=== PATIENT | male | born 1990 | race Caucasian/White ===

== ENCOUNTER → 2023-08-19 08:26 | Outpatient (CLI) | payer BC, SELFPAY ==
[2023-08-19 19:36] LABS: Basophils % 0.4 % (0.1-2.0); Eosinophils # 0.2 K/mm3 (0.0-0.4); Eosinophils % 2.5 % (0.1-12.0); Hematocrit 45.2 % (42.0-52.0); Hemoglobin 15.7 g/dL (14.1-18.0); Lymphocytes # 2.3 K/mm3 (0.7-4.5); Lymphocytes % 33.7 % (10-50); Mean Corpuscular HGB Conc 34.7 g/dL (31.8-35.4); Mean Corpuscular Hemoglobin 29.7 pg (27.0-31.2); Mean Corpuscular Volume 85.5 fl (80-94); Mean Platelet Volume 8.6 fl (7.4-10.4); Monocytes # 0.4 K/mm3 (0.1-1.0); Monocytes % 5.6 % (1.7-9.3); Neutrophils # 3.9 K/mm3 (1.8-7.8); Neutrophils % 57.7 % (37.0-80.0); Platelet Count 163 K/mm3 (142-424); Red Blood Count 5.29 M/mm3 (4.60-6.20); Red Cell Distribution Width 13.6 % (11.5-17.5); White Blood Count 6.7 K/mm3 (4.8-10.8)
[2023-08-19 19:58] LABS: Alanine Aminotransferase 36 U/L (12-78); Albumin Level 4.6 g/dl (3.5-5.0); Albumin/Globulin Ratio 1.7 (1.1-1.8); Alkaline Phosphatase 74 U/L (38-126); Anion Gap 16.9 mEq/L (5-15); Aspartate Amino Transferase 32 U/L (17-59); Bilirubin,Total 0.5 mg/dl (0.2-1.3); Blood Urea Nitrogen 18 mg/dl (9-20); Calcium 9.7 mg/dl (8.4-10.2); Carbon Dioxide 26 mmol/L (22.0-30.0); Chloride 100 mmol/L (98-107); Chol/HDL Ratio 6.1 (1-3.5); Cholesterol 227 mg/dl (140-200); Estimated Glomerular Filt Rate 86 ml/min (>60); GFR (African American) 104 ML/MIN (>60); Globulin 2.7 g/dL (1.3-3.2); Glucose 91 mg/dl (74-100); HDL Cholesterol 37 mg/dl (40-60); Potassium 3.9 mmoL/L (3.5-5.1); Sodium 139 mmol/L (136-145); Total Protein,Serum 7.3 g/dl (6.3-8.2); Triglycerides 272 mg/dl (30-150); VLDL Cholesterol 54 mg/dL (0-40)
[2023-08-19 20:09] LABS: Direct LDL Cholesterol 128.44 mg/dL (100-129)
[2023-08-19 20:15] LABS: 25-OH Vitamin D, Total 28.5 ng/mL (30-100)
== END ==
PROVIDERS: PCP Physician Assistant; Visit Provider Physician Assistant
DX: Z00.00 Encounter for general adult medical examination without abnormal findings (principal); E55.9 Vitamin D deficiency, unspecified; Z68.41 Body mass index [BMI] 40.0-44.9, adult
CPT/HCPCS: 80053; 80061; 82306; 84443; 85025

== ENCOUNTER 2024-01-12 15:51 | Outpatient (CLI) | payer BC, SELFPAY ==
--- NOTE | 2024-01-12 15:56 | XR_ITS ---
FINAL REPORT CLINICAL HISTORY: cough COMPARISON: 08/25/2019 FINDINGS: Two views of the chest were obtained. The heart size and pulmonary vascularity are within normal limits. The mediastinum is normal. No acute pulmonary abnormality is identified. There is no pneumothorax. The bony thorax is intact. IMPRESSION: No active cardiopulmonary disease. Reviewed, Interpreted and Dictated by Dylan Shepherd III, MD Transcribed by Delfnia Hugo Authenticated and [facility]
[2024-01-12 16:30] LABS: Basophils # 0.1 K/mm3 (0-0.2); Basophils % 0.9 % (0.1-2.0); Eosinophils # 0.1 K/mm3 (0.0-0.4); Eosinophils % 1.7 % (0.1-12.0); Hemoglobin 15.3 g/dL (14.1-18.0); Lymphocytes # 2.7 K/mm3 (0.7-4.5); Mean Corpuscular HGB Conc 34.1 g/dL (31.8-35.4); Mean Corpuscular Hemoglobin 28.9 pg (27.0-31.2); Mean Corpuscular Volume 84.8 fl (80-94); Mean Platelet Volume 7.9 fl (7.4-10.4); Monocytes # 0.4 K/mm3 (0.1-1.0); Monocytes % 4.2 % (1.7-9.3); Neutrophils # 5.2 K/mm3 (1.8-7.8); Neutrophils % 61.2 % (37.0-80.0); Platelet Count 194 K/mm3 (142-424); Red Blood Count 5.31 M/mm3 (4.60-6.20); White Blood Count 8.4 K/mm3 (4.8-10.8)
[2024-01-12 16:47] LABS: Hemoglobin A1C 6.2 % (4.0-6.0)
[2024-01-12 17:30] LABS: Alanine Aminotransferase 29 U/L (12-78); Albumin Level 4.5 g/dl (3.5-5.0); Albumin/Globulin Ratio 1.8 (1.1-1.8); Alkaline Phosphatase 85 U/L (38-126); Aspartate Amino Transferase 28 U/L (17-59); Bilirubin,Total 0.5 mg/dl (0.2-1.3); Blood Urea Nitrogen 16 mg/dl (9-20); Carbon Dioxide 25 mmol/L (22.0-30.0); Chloride 105 mmol/L (98-107); Cholesterol 258 mg/dl (140-200); Estimated Glomerular Filt Rate 97 ml/min (>60); GFR (African American) 118 ML/MIN (>60); Globulin 2.5 g/dL (1.3-3.2); Glucose 99 mg/dl (74-100); HDL Cholesterol 37 mg/dl (40-60); Sodium 139 mmol/L (136-145); Triglycerides 363 mg/dl (30-150); VLDL Cholesterol 73 mg/dL (0-40)
[2024-01-12 17:41] LABS: Direct LDL Cholesterol 129.57 mg/dL (100-129)
[2024-01-12 17:47] LABS: 25-OH Vitamin D, Total 30.5 ng/mL (30-100)
[2024-01-12 18:02] LABS: Thyroid Stimulating Hormone 2.57 uIU/mL (0.465-4.68)
== END 2024-01-12 23:59 | disposition home or self-care (01) ==
LOC: LAB 15:52
PROVIDERS: PCP Physician Assistant; Visit Provider Family Medicine
DX: R07.89 Other chest pain (principal); R07.1 Chest pain on breathing; R09.89 Other specified symptoms and signs involving the circulatory and respiratory systems; R05.9 Cough, unspecified; J34.89 Other specified disorders of nose and nasal sinuses; R73.03 Prediabetes; E78.00 Pure hypercholesterolemia, unspecified; J06.9 Acute upper respiratory infection, unspecified; E66.9 Obesity, unspecified; Z68.41 Body mass index [BMI] 40.0-44.9, adult
CPT/HCPCS: 36415; 71046; 80053; 80061; 82306; 83036; 84443; 85025

== ENCOUNTER 2024-01-19 14:45 | Outpatient (CLI) | payer BC, SELFPAY ==
--- NOTE | 2024-01-19 14:46 | CT_ITS ---
FINAL REPORT TECHNIQUE: Thin section axial CT images were obtained from the lung apices to the upper abdomen. IV contrast was administered. MIP 3-D reformats were obtained. This study was performed with techniques to keep radiation doses as low as reasonably achievable (ALARA). Individualized dose reduction techniques using automated exposure control or adjustment of mA and/or kV according to the patient's size were employed. CLINICAL HISTORY: dyspnea, chest pain, cough looking for subclavian blockage on left COMPARISON: None FINDINGS: There is a soft tissue in the anterior mediastinum likely residual thymus. The heart size is normal. There is no adenopathy. The pulmonary vasculature is adequately opacified. There is no filling defect to suggest PE. There is no aortic dissection. There is no pericardial effusion. There is no suspicious infiltrate. No pleural effusion. There is a 5 mm nodule in the left lower lobe best seen on image 187 of series 2. IMPRESSION: No pulmonary embolism or aortic dissection. 5 mm nodule in the left lower lobe, Fleischner criteria does not apply to this patient secondary to patient's age. Consider 12-month follow-up. Reviewed, Interpreted and Dictated by Alfie Reveles MD Transcribed by LOIDA Givens Authenticated and [facility]
[2024-01-19] MEDS: SODIUM CHLORIDE 0.9% 10ML SYR (RAD ONLY) 10 ML IV (15:07)
[2024-01-19] MEDS: 0.9 % SODIUM CHLORIDE 50 ML VIAL IV (15:07)
[2024-01-19] MEDS: IOPAMIDOL-370 (76%);100ML BOTTLE 70 ML IV (15:07)
== END 2024-01-19 23:59 | disposition home or self-care (01) ==
LOC: RAD 14:46
PROVIDERS: PCP Physician Assistant; Visit Provider Family Medicine
DX: R05.9 Cough, unspecified (principal); R06.00 Dyspnea, unspecified; R09.89 Other specified symptoms and signs involving the circulatory and respiratory systems; R07.1 Chest pain on breathing
CPT/HCPCS: 71275; Q9967

== ENCOUNTER 2024-12-25 00:36 | Emergency (ER) | payer BC, SELFPAY ==
[2024-12-25 00:52] VITALS: BP 148/100; PULSE 90; RESP 16; O2SAT 98; BMI 40.4
[2024-12-25 00:55] VITALS: TEMP 36.5
--- NOTE | 2024-12-25 00:56 | CT_ITS ---
PROCEDURE INFORMATION: Exam: CT Abdomen And Pelvis With Contrast Exam date and time: 12/25/2024 2:04 AM Age: 34 years old Clinical indication: Abdominal pain; Flank; Right; Additional info: Ruq and R flank pain radiating to groin TECHNIQUE: Imaging protocol: Computed tomography of the abdomen and pelvis with contrast. Radiation optimization: All CT scans at this facility use at least one of these dose optimization techniques: automated exposure control; mA and/or kV adjustment per patient size (includes targeted exams where dose is matched to clinical indication); or iterative reconstruction. Contrast material: ISOVUE; Contrast volume: 75 ml; Contrast route: IV; COMPARISON: CT ANGIO CHEST PE PROTOCOL 01/19/2024 2:52 PM FINDINGS: Lungs: There is a pulmonary parenchymal calcification consistent with remote granulomatous organism exposure. The visualized lung bases are otherwise clear. Pleural spaces: There are no pleural effusions. Heart: The visualized portions of the heart are unremarkable. There is no evidence of pericardial fluid collections. Liver: There is a punctate calcification in the liver consistent with prior granulomatous disease. There is mild enlargement of the liver. The liver measures 21.4 cm in cc dimension. Gallbladder and biliary ducts: There is a small nodular focus involving the periphery of the gallbladder fundus which may reflect a small stone or potentially a polyp. This is best seen on series 3, image 53 and series 1002 image 30. The gallbladder is otherwise normal. Pancreas: The pancreas is normal. Spleen: There is mild nonspecific splenomegaly. The spleen measures 15.6 cm in CC dimension. The spleen demonstrates punctate calcifications, consistent with remote granulomatous organism exposure. An accessory splenule is present. Adrenal glands: The adrenal glands are normal. Kidneys and ureters: There is a focal left renal hypodensity measuring approximate 11 mm that cannot be further characterized on the current examination. Statistically, this is likely a cyst. The kidneys are otherwise normal. Stomach and bowel: The duodenum is unremarkable. Lack of gastrointestinal contrast limits evaluation of bowel. Unopacified loops of small bowel within range of normal. The colon is normal. The stomach appears within range of normal. Appendix: A normal appendix is identified. Intraperitoneal space: There is no evidence of free intraperitoneal or pelvic fluid. No free air. Vasculature: There is no evidence of an aortic aneurysm. Lymph nodes: There is no evidence of pathologic adenopathy. There are a few scattered shotty periportal and retroperitoneal lymph nodes, not of pathologic significance by CT size criteria. Urinary bladder: The bladder is decompressed. Reproductive: The prostate and seminal vesicles are normal. Bones/joints: There is no evidence of acute fracture. Soft tissues: Unremarkable. IMPRESSION: 1. Mild hepatosplenomegaly. 2. Small nodular focus involving the periphery of the gallbladder fundus which may reflect a small stone or polyp. This could be confirmed with right upper quadrant ultrasound when the patient's condition permits.
[2024-12-25] MEDS: LACTATED RINGERS 1000ML 1,000 ML 999 ML IV (01:01)
[2024-12-25] MEDS: ONDANSETRON 4MG/2ML VIAL 4 MG IV (01:02)
[2024-12-25] MEDS: HYDROMORPHONE 2MG/ML SYRINGE 0.5 MG IV (01:02)
[2024-12-25] MEDS: KETOROLAC 30MG/ML VIAL 30 MG IV (01:02)
[2024-12-25 01:11] LABS: Albumin Level 4.7 g/dl (3.5-5.0); Chloride 103 mmol/L (98-107); Hemoglobin 15.1 g/dL (14.1-18.0); Mean Corpuscular HGB Conc 33.6 g/dL (31.8-35.4); Mean Corpuscular Hemoglobin 27.6 pg (27.0-31.2); Monocytes # 0.7 K/mm3 (0.1-1.0); Potassium 3.6 mmoL/L (3.5-5.1); Red Blood Count 5.47 M/mm3 (4.60-6.20); Sodium 139 mmol/L (136-145)
[2024-12-25 01:14] LABS: Alanine Aminotransferase 35 U/L (12-78); Alkaline Phosphatase 78 U/L (38-126); Anion Gap 3.6 mEq/L (5-15); Aspartate Amino Transferase 39 U/L (17-59); Bilirubin,Total 0.5 mg/dl (0.2-1.3); Blood Urea Nitrogen 17 mg/dl (9-20); Carbon Dioxide 36 mmol/L (22.0-30.0); Creatinine Clearance Estimated 162 mL/min (50-200); Estimated Glomerular Filt Rate 63 ml/min (>60); GFR (African American) 76 ML/MIN (>60); Globulin 2.3 g/dL (1.3-3.2)
[2024-12-25 01:15] LABS: Glucose 120 mg/dl (74-100)
[2024-12-25 01:22] LABS: Basophils % 0.2 % (0.1-2.0); Eosinophils # 0.6 K/mm3 (0.0-0.4); Lymphocytes # 3.3 K/mm3 (0.7-4.5); Lymphocytes % 30.7 % (10-50); Mean Corpuscular Volume 82.3 fl (80-94); Mean Platelet Volume 9.7 fl (7.4-10.4); Monocytes % 6.6 % (1.7-9.3); Neutrophils % 56.1 % (37.0-80.0); Platelet Count 198 K/mm3 (142-424); White Blood Count 10.7 K/mm3 (4.8-10.8)
[2024-12-25 01:31] LABS: Microscopic, Urine URINE MICROSCOPIC (MICROSCOPIC)
[2024-12-25 01:33] LABS: Appearance,Urine CLEAR (Clear); Bilirubin,Urine Negative (Negative); Blood, Urine Negative (Negative); Color,Urine YELLOW (Yellow); Glucose,Urine (UA) Negative (Negative); Ketones,Urine Negative (Negative); Leukocyte Esterase,Urine Negative (Negative); Nitrate,Urine Negative (Negative); Protein,Urine TRACE (Negative); Specific Gravity, Urine >= 1.030 (1.005-1.030)
[2024-12-25] MEDS: HYDROMORPHONE 2MG/ML SYRINGE 1 MG IV (01:37)
--- NOTE | 2024-12-25 01:48 | HMH.EDGENADL ---
Discharge Plan Disposition Patient Disposition: Home, Self-Care Condition: Good Prescriptions Prescriptions: New ondansetron 4 mg tablet,disintegrating 4 mg PO Q6H PRN (Reason: nausea and vomiting) Qty: 7 0RF No Action azelastine 137 mcg (0.1 %) aerosol,spray 1 spray intranasal BID Qty: 30 2RF Rx Instructions: administer into each nostril jydfrbevlzhaxco-azrxufdnv-VU [Bromfed DM] 2-30-10 mg/5 mL syrup 10 ml PO Q6H Qty: 118 0RF azithromycin [Zithromax Z-Raulito] 250 mg tablet See Rx Instructions PO .COMPLEX Qty: 6 0RF Rx Instructions: For 250 mg dose pack: take 500 mg today (day 1), then 250 mg for 4 days (days 2-5) PO atorvastatin [Lipitor] 10 mg tablet 10 mg PO HS Qty: 30 2RF Referrals Follow up/Referrals: Dylan Giordano MD [Staff Physician] - See instructions (RUQ pain, has distended GB but no cholecystitis) Dara Hernandez PA [Primary Care Provider] - See instructions (please see for recheck kidney function) Activity Restrictions/Add. Instructions Additional Instructions/Restrictions: You were evaluated in the ER and are appropriate for discharge at this time. Drink plenty of fluids. Please make an appointment with your primary care doctor for reevaluation in 2 to 3 days to recheck your kidney function. Take the prescribed ondansetron (Zofran) if needed for nausea or vomiting. Call the general surgery office and make an appointment with Dr. Giordano for reevaluation of your gallbladder. Return to the ER with new, worsening, or otherwise concerning symptoms. Clinical Impressions Clinical Impression: Abdominal pain, RUQ (right upper quadrant) Print Language Print Language: Upper Sorbian Discharge ED Provider: Don Milner Adult HPI General Chief complaint: PAIN Stated complaint: pain R side, nausea Time Seen by Provider: 12/25/24 00:58 Mode of Arrival: Ambulatory Source of Information: Patient and Spouse Description of Symptoms (Recalled from ER Triage Doc. by RN): pt reports right sided pain that radiates into his groin and into his back. pt denies any dysuria or hematuria. History of Present Illness HPI narrative: 34-year-old male with history of high cholesterol, prediabetes presents to the ER with complaints of right upper quadrant and right flank pain radiating into his groin and his right shoulder. Patient reports he had mild pain earlier this evening but it got severe a few hours ago. He is having nausea and started having emesis in the ER. He is not having any painful urination or blood in his urine. He denies any changes in his bowel habits. Patient reports no history of abdominal surgeries. He does not currently take any prescriptions. He has no history of kidney stones. Patient reports no fevers, chills, chest pain, difficulty breathing, or other associated symptoms. Related Data Previous Rx's ?Medication ?Instructions ?Recorded azelastine 137 mcg (0.1 %) nasal 1 spray intranasal BID #30 mL 01/12/24 spray jeodzlhvsdgsasi-ihqhohtgqxfeggu-MK 10 ml PO Q6H #118 mL 01/12/24 2 mg-30 mg-10 mg/5 mL oral syrup (Bromfed DM) atorvastatin 10 mg tablet (Lipitor) 10 mg PO HS #30 tabs 01/13/24 azithromycin 250 mg tablet See Rx Instructions PO .COMPLEX #6 01/13/24 (Zithromax Z-Raulito) tabs ondansetron 4 mg disintegrating 4 mg PO Q6H PRN nausea and 12/25/24 tablet vomiting #7 tabs Allergies Allergy/AdvReac Type Severity Reaction Status Date / Time codeine Allergy Mild Verified 01/12/24 15:13 Penicillin Allergy Unknown Uncoded 08/19/23 15:53 [facility] Disclaimer: The information contained in this section may have been updated after the patient was seen, as this information can be updated by other users. Medical History (Updated 12/25/24 @ 03:49 by Don Milner MD) Gastritis Surgical History H/O nasal septoplasty Fracture of finger of left hand [place] teeth removed Social History Smoking Status: Current every day smoker alcohol intake: never substance use type: denies use current occupational status: employed Travel in the last 8 weeks: None household members: spouse and children housing: house Have you lived/traveled outside US in past 30 days?: No Contact w/someone who lives/traveled outside US past 30 days?: No Exposure to someone with infectious disease in past 14 days?: No Do you have a fever (greater than 100.4 F or 38 C)?: No Have you tested positive for COVID-19: No Exposed to someone with COVID-19 in past 14 days?: No Do you have a sore throat?: No Do you have a cough?: No Do you have any weakness?: No Do you have any diarrhea?: No Are you experiencing any unusual bleeding?: No Do you have any muscle aches/pain?: No Do you have any abdominal pain?: Yes Are you experiencing loss of taste or smell?: No Other Medical History Have you received the Flu Vaccine for this season: No Have you received the Pneumonia Vaccine: No ROS Obtained: Yes Systems reviewed as appropriate & no additional complaints except as documented Per HPI Physical Exam General General appearance: alert and obese Comment: Appears to be uncomfortable but nontoxic Head Head exam: atraumatic and normocephalic Eye Eye exam: Present PERRL and EOMI ENT ENT exam: Present mucous membranes moist Neck Neck exam: Present normal inspection and full ROM Chest Chest inspection: Present symmetric chest wall rise Respiratory Respiratory exam: Present normal lung sounds bilaterally; Absent respiratory distress, wheezes or stridor Cardiovascular Cardiovascular exam: Present regular rate and normal rhythm Abdominal Exam Abdominal exam: Present soft and tenderness (Mild right upper quadrant); Absent distention, guarding, rebound or rigidity Extremities Exam Extremities exam: Present full ROM Back Exam Back exam: Present full ROM and CVA tenderness (R) (Very mild); Absent CVA tenderness (L) Neurological Exam Neurological exam: Present alert and oriented X3; Absent motor sensory deficit Psychiatric Psychiatric exam: Present normal affect and normal mood Skin Skin exam: Present warm and dry Medical Decision Making Medical Records Medical records reviewed: Yes I reviewed the patient's medical records. Screening: Per USPSTF and CDC recommendations, given the prevalence of disease in our region, it is our hospital?s policy to screen for HIV and viral Hepatitis for all patients aged 18 and over and those with ongoing risk factors. MR Comment: Patient was seen by Mandy Chaidez in January 2024. He was prescribed Bromfed and azithromycin for respiratory infection. Mushtaq Inquiry Pt receiving controlled substance: No Vital Signs: 12/25/24 00:52 12/25/24 00:55 Temperature 97.7 F Temperature Source Oral Pulse Rate [Right] 90 Respiratory Rate 16 Blood Pressure [Right Arm] 148/100 H Blood Pressure Mean [Right Arm] 116 02 Sat by Pulse Oximetry 98 Oxygen Delivery Method Room Air Lab Data Lab Results 12/25/24 00:45: WBC 10.7, RBC 5.47, Hgb 15.1, Hct 45.0, MCV 82.3, MCH 27.6, MCHC 33.6, RDW 13.0, Plt Count 198, MPV 9.7, Neut % (Auto) 56.1, Lymph % (Auto) 30.7, [place] % (Auto) 6.6, Eos % (Auto) 6.0, Baso % (Auto) 0.2, Neut # (Auto) 6.0, Lymph # (Auto) 3.3, [place] # (Auto) 0.7, Eos # (Auto) 0.6 H, Baso # (Auto) 0.0, Sodium 139, Potassium 3.6, Chloride 103, Carbon Dioxide 36 H, Anion Gap 3.6 L, BUN 17, Creatinine 1.30 H, Estimated Creat Clear 162, Estimated GFR 63, Est GFR ( Amer) 76, Glucose 120 H, Calcium 9.0, Total Bilirubin 0.5, AST 39, ALT 35, Alkaline Phosphatase 78, Total Protein 7.0, Albumin 4.7, Globulin 2.3, Albumin/Globulin Ratio 2.0 H 12/25/24 01:26: Urine Color Yellow, Urine Appearance Clear, Urine pH 6.0, Ur Specific [place] >= 1.030, Urine Protein Trace, Urine Glucose (UA) Negative, Urine Ketones Negative, Urine Blood Negative, Urine Nitrate Negative, Urine Bilirubin Negative, Urine Urobilinogen 1.0, Ur Leukocyte Esterase Negative, Urine RBC None, Urine WBC Occasional, Ur Squamous Epith Cells Occasional, Urine Bacteria Trace 12/25/24 : HCV Ab WAYNE w/Rflx PCR Qn Negative 12/25/24 00:45 12/25/24 00:45 Orders (Tests/Meds): ED MEDICATIONS Generic Name Dose Route Start Last Admin Trade Name Freq PRN Reason Stop Dose Admin Sodium Chloride 10 ml 12/25/24 02:11 12/25/24 02:15 Sodium Chloride 0.9% 10ml Syr (Rad Only) IV 01/24/25 02:10 10 ml NEEDED PRN Administration Maintain IV Site Discontinued Medications Generic Name Dose Route Start Last Admin Trade Name Hugoq PRN Reason Stop Dose Admin Hydromorphone HCl 0.5 mg 12/25/24 00:56 12/25/24 01:02 Hydromorphone 2mg/Ml Syringe IV 12/25/24 00:57 0.5 mg ONCE ONE Administration Hydromorphone HCl 1 mg 12/25/24 01:35 12/25/24 01:37 Hydromorphone 2mg/Ml Syringe IV 12/25/24 01:36 1 mg ONCE ONE Administration Lactated Ringer's 1,000 mls @ 999 mls/hr 12/25/24 00:56 12/25/24 01:01 Lactated Ringer's 1000 Ml Bag IV 12/25/24 01:56 999 mls/hr .Q1H1M ONE Administration Iopamidol 75 ml 12/25/24 02:11 12/25/24 02:15 Iopamidol-370 (76%);100ml Bottle IV 12/25/24 02:12 75 ml ONCE ONE Administration Ketorolac Tromethamine 30 mg 12/25/24 00:56 12/25/24 01:02 Ketorolac 30mg/Ml Vial IV 12/25/24 00:57 30 mg ONCE ONE Administration Ondansetron HCl 4 mg 12/25/24 00:58 12/25/24 01:02 Ondansetron 4mg/2ml Vial IV 12/25/24 00:59 4 mg ONCE ONE Administration ORDERS Category Date Time Status CT abdomen pelvis w con Stat Cat Scan 12/25/24 00:56 Completed POCUS Point of Care (ER Only) Stat Exams 12/25/24 03:32 Ordered CBC w/Auto Diff [Complete Blood Count Auto Diff] Stat Lab 12/25/24 00:45 Completed CMP [Comprehensive Metabolic Panel] Stat Lab 12/25/24 00:45 Completed HIV Combo Stat Lab 12/25/24 00:55 Ordered Hepatitis C Ab Qual. W/ RFX Stat Lab 12/25/24 Completed Urinalysis and Microscopic Stat Lab 12/25/24 01:26 Completed Medical Decision Narrative: In summary, this 34-year-old male with comorbidities described in the HPI which may not be at goal therapy presents to the emergency department today with right-sided abdominal pain radiating to the flank, groin, and up to the right shoulder. On initial evaluation patient is hemodynamically stable, afebrile, uncomfortable appearing, mild tenderness to palpation of the right upper quadrant and very mild right CVA tenderness, no other focal findings, no peritonitic findings. Differential diagnosis includes but is not limited to cholelithiasis, cholecystitis, appendicitis, kidney stone, urinary tract infection, pyelonephritis, electrolyte abnormality, among others. Based on these concerns, I ordered serum labs, CT imaging, urine studies. Patient received IV fluids, Toradol, Dilaudid, Zofran for treatment. He required additional dose of Dilaudid for pain control Labs personally reviewed demonstrate no leukocytosis or anemia, CMP with creatinine 1.3, up from 0.9 nearly 1 year ago, patient is already receiving IV fluids. UA negative for findings of infection, no blood. CT abdomen pelvis personally interpreted does not demonstrate evidence of kidney stone or hydronephrosis, patient does have distended gallbladder, I do not appreciate pericholecystic fluid or obvious stone. See radiology read for final interpretation. Based on my personal interpretation of CT, I did perform [id number] ultrasound at bedside to evaluate the gallbladder. I personally performed and interpreted the ultrasound which demonstrates full gallbladder, no obvious wall thickening, no pericholecystic fluid, bowel gas and patient's body habitus limited exam so I was unable to measure the common bile duct. Patient is pain has been well-controlled and he has not had additional emesis in the ER. He is resting comfortably. He is reassured by workup. I believe he is appropriate for outpatient follow-up at this time for his gallbladder. Biliary colic would explain his symptoms well especially with the areas of radiation. He was referred to Dr. Giordano for outpatient follow-up with general surgery. I prescribed Zofran for symptomatic management if needed though he is asymptomatic at this time. I also explained he needs close follow-up for his creatinine. He and are comfortable with this plan. Patient was given instructions on symptomatic management, follow up instructions, and return precautions for the emergency department. Patient indicated understanding and was discharged in stable condition. Procedures Miscellaneous Procedure Procedure Performed: Limited RUQ ultrasound Indication: Abdominal pain, nausea vomiting Identified structures: -Gallbladder -Gallbladder wall Common bile duct unable to be evaluated secondary to patient's body habitus and bowel gas -Liver Findings: Sonographic Rai sign: Absent Gallstones: Not evident Sludge: Absent Pericholecystic fluid: Absent Maximal GB wall thickness (mm): [normal is </= 3mm] Normal, 2.9 mm Common bile duct width (mm): Unable to be measured secondary to body habitus and bowel gas Gallbladder width (cm): [normal is < 4cm] 3.8 Gallbladder length (cm): [normal is < 10cm] 8.9 Impression: Gallbladder is full but not enlarged, no obvious cholelithiasis or cholecystitis Images were saved to permanent archive The study was technically adequate CPT 94638-50 This study was performed by me, and I personally interpreted all images/videos. Based on my clinical judgement, these images were adequate and did not necessitate further imaging. Critical Care Critical Care Time Critical Care Time: No
[2024-12-25 02:07] LABS: Bacteria,Urine Trace /lpf; Squamous Epithelial Cell,Urine Occasional #/hpf (0-5); WBC,Urine Occasional #/hpf (0-3)
[2024-12-25] MEDS: IOPAMIDOL-370 (76%);100ML BOTTLE 75 ML IV (02:15)
[2024-12-25] MEDS: SODIUM CHLORIDE 0.9% 10ML SYR (RAD ONLY) 10 ML IV (02:15)
[2024-12-25 02:49] LABS: Hepatitis C Ab Qual. W/ RFX NEGATIVE (Negative)
[2024-12-25 03:55] VITALS: BP 120/78; PULSE 89; RESP 20; TEMP 36.5; O2SAT 99
[2024-12-25 08:37] LABS: HIV Combo NEGATIVE (Negative)
== END 2024-12-25 03:55 | disposition home or self-care (01) ==
PROVIDERS: Emergency Provider Emergency Medicine; PCP Physician Assistant
DX: K82.8 Other specified diseases of gallbladder (principal); R10.31 Right lower quadrant pain; R10.2 Pelvic and perineal pain; M25.511 Pain in right shoulder; R10.11 Right upper quadrant pain; R11.2 Nausea with vomiting, unspecified; R73.03 Prediabetes; E78.00 Pure hypercholesterolemia, unspecified; F17.210 Nicotine dependence, cigarettes, uncomplicated; E66.9 Obesity, unspecified; Z68.41 Body mass index [BMI] 40.0-44.9, adult; Z88.5 Allergy status to narcotic agent; Z88.0 Allergy status to penicillin; Z98.890 Other specified postprocedural states
CPT/HCPCS: 74177; 80053; 81001; 85025; 86803; 87389; 96361; 96374; 96375; 96376; 99284; J1171; J1885; J2405; J7120; Q9967

== ENCOUNTER 2025-01-10 09:12 | Outpatient (CLI) | payer BC, SELFPAY ==
--- NOTE | 2025-01-10 09:30 | US_ITS ---
FINAL REPORT CLINICAL HISTORY: Right upper quad pain COMPARISON: None FINDINGS: Sonographic images of the right upper quadrant were obtained. The pancreas is partially obscured. There is increased echogenicity in the liver consistent with fatty infiltration. The gallbladder is incompletely distended, with mild wall thickening and several polyps noted within the gallbladder. There is no evidence of biliary ductal dilatation.The common duct measures 4mm. Limited images of the right kidney are unremarkable. IMPRESSION: The gallbladder is incompletely distended, with mild wall thickening and several polyps noted within the gallbladder. No biliary ductal dilatation is identified. Fatty infiltration of the liver. Reviewed, Interpreted and Dictated by Alfie Reveles MD Transcribed by Maggie Rocha Authenticated and [facility]
== END 2025-01-10 23:59 | disposition home or self-care (01) ==
LOC: RAD 09:14
PROVIDERS: PCP Physician Assistant; Visit Provider Surgery
DX: R10.11 Right upper quadrant pain (principal)
CPT/HCPCS: 76705

== ENCOUNTER 2025-01-19 10:54 | Outpatient (CLI) | payer BC, SELFPAY ==
[2025-01-19 11:06] VITALS: BMI 37.5
[2025-01-19 11:32] LABS: Basophils % 0.2 % (0.1-2.0); Eosinophils # 0.1 K/mm3 (0.0-0.4); Eosinophils % 0.8 % (0.1-12.0); Hematocrit 44.5 % (42.0-52.0); Lymphocytes # 1.7 K/mm3 (0.7-4.5); Lymphocytes % 26.9 % (10-50); Mean Corpuscular HGB Conc 33.7 g/dL (31.8-35.4); Mean Corpuscular Hemoglobin 27.5 pg (27.0-31.2); Mean Corpuscular Volume 81.5 fl (80-94); Monocytes # 0.4 K/mm3 (0.1-1.0); Monocytes % 5.7 % (1.7-9.3); Neutrophils # 4.1 K/mm3 (1.8-7.8); Neutrophils % 66.1 % (37.0-80.0); Nucleated Red Blood Cells # 0 10^3/uL; Nucleated Red Blood Cells % 0 %; Platelet Count 184 K/mm3 (142-424); Red Blood Count 5.46 M/mm3 (4.60-6.20); Red Cell Distribution Width 13.1 % (11.5-17.5); Red Cell Distribution Width-SD 38.4 fL; White Blood Count 6.2 K/mm3 (4.8-10.8)
[2025-01-19 11:53] LABS: Albumin Level 4.5 g/dl (3.5-5.0); Chloride 103 mmol/L (98-107); Sodium 140 mmol/L (136-145)
[2025-01-19 11:54] LABS: Potassium 4.3 mmoL/L (3.5-5.1)
[2025-01-19 11:56] LABS: Alanine Aminotransferase 102 U/L (12-78); Albumin/Globulin Ratio 1.7 (1.1-1.8); Alkaline Phosphatase 74 U/L (38-126); Anion Gap 13.3 mEq/L (5-15); Aspartate Amino Transferase 94 U/L (17-59); Bilirubin,Total 0.5 mg/dl (0.2-1.3); Blood Urea Nitrogen 15 mg/dl (9-20); Carbon Dioxide 28 mmol/L (22.0-30.0); Creatinine Clearance Estimated 200 mL/min (50-200); Estimated Glomerular Filt Rate 86 ml/min (>60); GFR (African American) 103 ML/MIN (>60); Globulin 2.7 g/dL (1.3-3.2); Total Protein,Serum 7.2 g/dl (6.3-8.2)
[2025-01-19 11:57] LABS: Calcium 9.7 mg/dl (8.4-10.2); Glucose 119 mg/dl (74-100)
== END 2025-01-19 23:59 | disposition home or self-care (01) ==
LOC: PREOP 10:56
PROVIDERS: PCP Physician Assistant; Visit Provider Surgery
DX: R10.11 Right upper quadrant pain (principal)
CPT/HCPCS: 80053; 85025

== ENCOUNTER 2025-01-24 06:12 | Day surgery (SDC) | payer BC, SELFPAY ==
[2025-01-19 12:51] VITALS: BMI 37.5
[2025-01-24] VITALS (14 sets, daily range): BP systolic 96–144; BP diastolic 50–86; PULSE 53–84; RESP 18; TEMP 36.3–43; O2SAT 92–98
[2025-01-24] MEDS: LACTATED RINGERS 1000ML 1,000 ML 25 ML IV (07:00)
[2025-01-24] MEDS: CEFAZOLIN SODIUM 2 GM in 0.9 % SODIUM CHLORIDE 100 ML IV (07:13)
[2025-01-24] MEDS: SODIUM CHLORIDE IRRIG SOLUTION 3,000 ML 25 ML IR (07:37)
[2025-01-24] MEDS: ROPIVACAINE 0.5% 30ML VIAL 150 MG (07:37)
[2025-01-24] MEDS: LIDOCAINE 1% 20ML MDV 20 ML (07:37)
--- NOTE | 2025-01-24 08:08 | EXP.ANES.CKL ---
[facility] Disclaimer: The information contained in this section may have been updated after the patient was seen, as this information can be updated by other users. Medical History Gastritis Surgical History H/O nasal septoplasty Fracture of finger of left hand 2006 [place] teeth removed 2006 Family History Other Family history of aneurysm Family history of heart disease Social History (Updated 01/24/25 @ 06:50 by Mary Ann Thomas RN) Smoking Status: Former smoker alcohol intake: never substance use type: denies use current occupational status: employed Travel in the last 8 weeks: None household members: spouse and children housing: house Have you lived/traveled outside US in past 30 days?: No Contact w/someone who lives/traveled outside US past 30 days?: No Exposure to someone with infectious disease in past 14 days?: No Do you have a fever (greater than 100.4 F or 38 C)?: No Have you tested positive for COVID-19: No Exposed to someone with COVID-19 in past 14 days?: No Do you have a sore throat?: No Do you have a cough?: No Do you have any weakness?: No Are you experiencing any nausea/vomitting?: No Do you have any diarrhea?: No Are you experiencing any unusual bleeding?: No Do you have any muscle aches/pain?: No Do you have any abdominal pain?: No Are you experiencing loss of taste or smell?: No [facility] Anesthesia Checklist Patient Identification Patient Identification: Verbal (Name & ) Structural Data Admitted From: Home Planned Operative Procedure/s: lap yen Consent for Planned Operative Procedure(s) Verified: Yes NPO Status Verified Time NPO: 00:00 Additional verifications Anesthesia Reactions: No Hx Blood Transfusions: No Blood Transfusion Reaction: No Airway Assessment Mallampati Score:: Class II C-Spine Mobility Assessed: Yes TMJ Mobility Assessed: Yes Dentition: Good Dentition Neurological Assessment Level of Consciousness: Awake, Alert and Appropriate Anesthesia Plan Anesthesia Risk discussed: Yes Anesthesia Plan: Verified ASA Class: II Anesthesia Type: General
--- NOTE | 2025-01-24 08:32 | EXP.OP.NOTE ---
Date of procedure: 01/24/25 Pre-op Diagnosis:: Gallbladder disease Post-op Diagnosis:: Same Procedure performed:: Laparoscopic cholecystectomy Surgeon:: Dylan Giordano MD Anesthesia: GETA Estimated blood loss (mL): 10 Operative findings:: He had a somewhat thickened distended gallbladder. There are some fatty infiltration of the liver. Operative note:: Consent was obtained and patient was taken the operating room. He was given preoperative intravenous antibiotic. In the operating room he was placed in a supine position. General anesthesia was induced via endotracheal tube. Abdomen was prepped and draped in the standard surgical fashion. Subumbilical skin incision was made and while performing abdominal wall lift Veress needle was inserted. CO2 pneumoperitoneum was achieved to 15 mmHg. 11 mm optical trocar was inserted at the umbilicus. Intraperitoneal contents were visualized. He was positioned in reverse Trendelenburg left side down. A couple of 5 mm trocars were inserted in the right upper abdomen. 11 mm trocar was inserted in the epigastrium. There was some fatty infiltration of the liver. Gallbladder is grasped and retracted anteriorly and superiorly over the dome of the liver. Infundibulum of the gallbladder was retracted anterolaterally. Blunt dissection was carried out at the neck of the gallbladder. There was some fatty infiltration of the peritoneum surrounding the gallbladder at the neck and jeanie hepatis. Careful dissection was carried out ultimately identifying the cystic artery and cystic duct in the critical view of safety. The cystic duct was isolated, multiply clipped, and sharply divided. The cystic artery was carefully coagulated with a's ultrasonic robotic malik and divided. Gallbladder was dissected free from the liver in a retrograde fashion using a's ultrasonic robotic malik. Gallbladder was placed within an Endo Catch retrieval device and remove peritoneal cavity via the umbilical trocar site which required some extension of the fascial incision for delivery. Gallbladder fossa was inspected for hemostasis which was assured. Trocars removed and CO2 pneumoperitoneum was evacuated. Fascia at the umbilicus was closed with couple 0 Vicryl sutures. Local anesthetic was infiltrated. Skin incisions were closed with 4-0 Monocryl in a subcuticular fashion. Steri-Strips and dressings were applied. Condition: stable Disposition: PACU Complications:: None immediately apparent
--- NOTE | 2025-01-24 08:49 | EXP.ANES.I ---
[facility] Anesthesia Record Part I Anesthesia Record I Intake, IV Amount: 800 Hydration: Adequate Estimated blood loss (mL): 10 Urine output (mL): 0 Blood Pressure: 144/61 SaO2: 94 Pulse Rate: 53 Airway Patency: Patent Respiratory Rate: 18 Temperature: 97.4 F Patient is:: Awake and Stable Stable to PACU at:: 08:54
[2025-01-24] MEDS: MORPHINE 2MG/ML SYRINGE 2 MG IV ×2 (08:55→09:05)
[2025-01-24] MEDS: HYDROMORPHONE 2MG/ML SYRINGE 0.5 MG IV ×3 (09:10→09:25)
--- NOTE | 2025-01-24 09:33 | SUR.PHASEI ---
administered morphine at 0855 and 0905 per DEC. Patient started complaining of severe itching at IV site. Noticeably red and hived. Patient stated he always itches and gets red when administered morphine for pain. Yeni Gomez CRNA Called to the BS to evaluate need for benadryl dose. VO given to monitor IV site for a while and then administer if redness worsens. VO repeated and correct. Morphine added to allergy list for future reference.
[2025-01-24] MEDS: OXYCODONE 5MG W/APAP 325MG TABLET 1 EACH (09:45)
--- NOTE | 2025-01-25 10:11 | EXP.ANES.II ---
[facility] Anesthesia Record Part II Anesthesia Record Part II Discharge Time: 09:45 Destination: [facility] (OP Surgery) PACU nurse assessment reviewed?: Yes Patient Condition:: Good Anesthesia Complications:: None Swallowing reflex intact?: Yes Airway Patency: Patent Cyanosis?: No Blood Pressure: 125/72 SaO2: 98 Respiratory Rate: 18 Pulse Rate: 65 Temperature: 97.4 F Mental Status: Alert & Oriented Pain level:: 8 Nausea and/or vomitting:: None Intake, IV Amount: 0 Hydration: Adequate
[2025-01-25 10:13] VITALS: BP 125/72; PULSE 65; RESP 18; TEMP 36.3; O2SAT 98
== END 2025-01-24 11:05 | disposition home or self-care (01) ==
PROVIDERS: PCP Physician Assistant; Visit Provider Surgery
PROC: 0FT44ZZ Resection of Gallbladder, Percutaneous Endoscopic Approach (ICD-10-PCS; CPT 47562; principal; 2025-01-24 07:30)
DX: K82.9 Disease of gallbladder, unspecified (principal)
CPT/HCPCS: 47562; 96374; J3490; J0690; J1100; J1171; J1200; J2250; J2270; J2405; J3010; J7120